=== PATIENT | female | born 1935 | race African-American/Black ===

== ENCOUNTER 2017-03-31 09:05 | Day surgery (SDC) | payer MEDICARE ==
[2017-03-31 10:10] LABS: HEMATOCRIT 35.9 % (36.0-47.0); HEMOGLOBIN 12.1 g/dL (12.0-15.5); MEAN CORPUSCULAR HGB CONC 33.7 g/dL (32.0-36.0); MEAN CORPUSCULAR VOLUME 86 fl (80-97); PLATELET COUNT 223 10^3/uL (150-450); RED BLOOD COUNT 4.16 10^6/uL (3.72-5.28); RED CELL DISTRIBUTION WIDTH 13.5 % (11.5-14.0); WHITE BLOOD COUNT 5.8 10^3/uL (4.0-10.5)
[2017-03-31] MEDS ORDERED: FLUMAZENIL INJ 0.5 MG/5 ML VIAL ONE (10:43)
[2017-03-31] MEDS ORDERED: NALOXONE HCL INJ/PF 0.4 MG/1 ML SDV ONE (10:43)
[2017-03-31] MEDS ORDERED: GLYCOPYRROLATE INJ 0.4 MG/2 ML VIAL ONE (10:43)
[2017-03-31] MEDS ORDERED: ONDANSETRON HCL INJ/PF 4 MG/2 ML SDV ONE (10:43)
[2017-03-31] MEDS ORDERED: EPINEPHRINE INJ 1 MG/10 ML DISP.SYRIN ONE (10:44)
[2017-03-31] MEDS ORDERED: GLUCAGON,HUMAN RECOMB 1 MG INJ ONE (10:44)
[2017-03-31] MEDS: MIDAZOLAM 2 MG/2 ML INJ ONE ×2 (12:17→12:21)
[2017-03-31] MEDS: FENTANYL CITRATE INJ/PF 100 MCG/2 ML AMPUL ONE ×2 (12:19→12:34)
--- NOTE | 2017-03-31 12:53 | Operative Report ---
Operative Report DATE OF SURGERY: 03/31/17 PREOPERATIVE DIAGNOSIS: History of colon polyps POSTOPERATIVE DIAGNOSIS: Transverse colon polyp OPERATION: Colonoscopy with snare polypectomy of transverse colon polyp SURGEON: LUCIA MEYERS ANESTHESIA: Moderate Sedation TISSUE REMOVED OR ALTERED: Transverse colon half centimeter sessile polyp COMPLICATIONS: None ESTIMATED BLOOD LOSS: Minimal INTRAOPERATIVE FINDINGS: Half centimeter sessile polyp at the transverse colon several folds away from the transverse colon ileal anastomosis. Well-healed coloileal anastomosis. PROCEDURE: Informed consent was obtained. Patient was brought to the endoscopy suite. IV sedation with Versed and fentanyl was administered. Digital rectal exam revealed a palpable mass in the pelvis. Patient did note that she had a [employer] device implanted in the past and my palpation is consistent with such a mass. She also stated that she had a recent [employer] evaluation in the past couple weeks. Endoscope was passed via the patient's anus. It was passed to the ileal transverse colon anastomosis. The anastomosis appear well-healed. Several folds away from the anastomosis there was 1/2 cm sessile polyp on the transverse colon. This polyp was snare polypectomy need and the specimen was retrieved. Remainder of the transverse colon and descending colon sigmoid colon the rectum appeared normal with no other masses. The bowel prep was good and visualization was good. Patient tolerated procedure well with no apparent complications. Assessment: Transverse colon polyp status post successful snare polypectomy. If this polyp proves to be an adenomatous polyp I do recommend repeat colonoscopy next year rather than 3 years since she has a propensity to develop these polyps (she has required 2 colon resections for colon polyps, last one only a year ago). Until we do a colonoscopy where there are no polyps seen, I recommend yearly colonoscopies.
--- NOTE | 2017-03-31 12:55 | PDOC DISCHARGE SUMMARY ---
Discharge Summary (SDC) - Discharge Final Diagnosis: Transverse colon polyp. Date of Surgery: 03/31/17 Discharge Date: 03/31/17 Condition: Good Treatment or Instructions: Colonoscopy with snare polypectomy of transverse colon polyp. May discharge patient home when met discharge criteria. Follow-up with me in 2 weeks. Referrals: JOSE CROW MD [Primary Care Provider] - Discharge Diet: As Tolerated Discharge Activity: Activity As Tolerated Report the Following to Your Physician Immediately: Increase in Pain, Fever over 101 Degrees, Unusual Bleeding, Large Clots
[2017-03-31 13:49] VITALS: BP 144/84
== END 2017-03-31 13:55 | disposition home or self-care (01) ==
LOC: END 09:05
PROVIDERS: ATTEND Surgery
PROC: 0DBL8ZX Excision of Transverse Colon, Via Natural or Artificial Opening Endoscopic, Diagnostic (ICD-10-PCS; principal; 2017-03-31 10:30)
DX: Z12.11 Encounter for screening for malignant neoplasm of colon (principal); K63.5 Polyp of colon; Z90.49 Acquired absence of other specified parts of digestive tract; E78.00 Pure hypercholesterolemia, unspecified; E11.9 Type 2 diabetes mellitus without complications; I10 Essential (primary) hypertension; E03.9 Hypothyroidism, unspecified; Z79.899 Other long term (current) drug therapy
CPT/HCPCS: 45385; 36415; 82962; 85027; 88305 ×2; J2250; J3010; J0171; J1610; J2310; J2405; J3490

== ENCOUNTER 2018-08-18 15:12 | Emergency (ER) | payer MEDICARE ==
[2018-08-18] MEDS ORDERED: NORMAL SALINE 1000 ML 1,000 ML IV ONE (15:35)
--- NOTE | 2018-08-18 15:38 | ER Document Report ---
ED Medical Screen (RME) - General Chief Complaint: Blood Pressure Problem Stated Complaint: DEHYDRATED Time Seen by Provider: 08/18/18 15:31 Primary Care Provider: JOSE CROW MD [Primary Care Provider] - Follow up as needed Mode of Arrival: Wheelchair Information source: Patient Notes: Patient is an 83-year-old female currently undergoing chemotherapy for cancer, she is unsure of the exact site but states that it is in her female reproductive organs. She states that she went to the doctor's office today where they stated that her blood pressure was 70s over 30s and her heart rate was elevated. Dr. Crow did call and give report that she will be coming for labs and IV fluids. She arrived via POV. Patient denies any symptoms other than feeling tired and general malaise. She denies any nausea, vomiting, diarrhea or fever. Mask was placed on the patient due to her active chemotherapy and she was upgraded to SEAMUS 2. She is mildly tachycardic on arrival. Exam: Lung sounds clear and equal bilaterally. Heart sounds S1-S2 present. I have greeted and performed a rapid initial assessment of this patient. A comprehensive ED assessment and evaluation of the patient, analysis of test results and completion of the medical decision making process will be conducted by additional ED providers. I have specifically instructed the patient or family members with the patient to immediately return to any nursing staff should anything change in the patient's condition or with their chief complaint. This medical record was dictated with voice recognizing software. There may be grammatical, syntax errors that are unintended. TRAVEL OUTSIDE OF THE [place] IN LAST 30 DAYS: No - Related Data Allergies/Adverse Reactions: No Known Allergies Allergy (Verified 08/18/18 15:19) Past Medical History - Past Medical History Cardiac Medical History: Reports: Hx Hypercholesterolemia, Hx Hypertension Denies: Hx Atrial Fibrillation, Hx Congestive Heart Failure, Hx Coronary Artery Disease, Hx Heart Attack, Hx Peripheral Vascular Disease, Hx Heart Murmur Pulmonary Medical History: Denies: Hx Asthma, Hx Bronchitis, Hx COPD, Hx Pneumonia Neurological Medical History: Denies: Hx Cerebrovascular Accident, Hx Seizures Endocrine Medical History: Reports: Hx Diabetes Mellitus Type 2 - [id number], Hx Hypothyroidism. Denies: Hx Graves' Disease, Hx Hyperthyroidism GI Medical History: Denies: Hx Crohn's Disease, Hx Gastroesophageal Reflux Disease, Hx Hepatitis, Hx Hiatal Hernia, Hx Irritable Bowel, Hx Liver Failure, Hx Pancreatitis, Hx Ulcer Musculoskeltal Medical History: Denies Hx Arthritis, Denies Hx Fibromyalgia, Denies Hx Muscular Dystrophy, Denies Hx Systemic Lupus Erythematosus Traumatic Medical History: Reports: Hx Fractures - left wrist fx 2014 Infectious Medical History: Denies: Hx Hepatitis Past Surgical History: Reports: Hx Bowel Surgery - REMOVAL OF TUMOR IN LARGE INTESTINES 2001, Other - Colectomy. Denies: Hx Appendectomy, Hx Section, Hx Cholecystectomy, Hx Colostomy, Hx Coronary Artery Bypass Graft, Hx Gastric Bypass Surgery, Hx Herniorrhaphy, Hx Hysterectomy, Hx Mastectomy, Hx Open Heart Surgery, Hx Pacemaker, Hx Tonsillectomy, Hx Tubal Ligation - Immunizations Hx Diphtheria, Pertussis, Tetanus Vaccination: Yes Influenza Administration Date for 11/2016 - 04/2017 Season: 10/10/16 Physical Exam - Vital signs Vitals: Temp Pulse Resp BP Pulse Ox 97.4 F 109 H 18 94/67 L 99 08/18/18 15:21 08/18/18 15:21 08/18/18 15:21 08/18/18 15:21 08/18/18 15:21 Course - Vital Signs Vital signs: Temp Pulse Resp BP Pulse Ox 97.4 F 109 H 18 94/67 L 99 08/18/18 15:21 08/18/18 15:21 08/18/18 15:21 08/18/18 15:21 08/18/18 15:21 Doctor's Discharge - Discharge Referrals: JOSE CROW MD [Primary Care Provider] - Follow up as needed
[2018-08-18 16:20] LABS: APPEARANCE,URINE CLEAR; BILIRUBIN,URINE NEGATIVE (NEGATIVE); COLOR,URINE YELLOW; GLUCOSE, URINE 50 mg/dL (NEGATIVE); KETONES,URINE NEGATIVE (NEGATIVE); LEUKOCYTE ESTERASE,URINE NEGATIVE (NEGATIVE); NITRITE,URINE NEGATIVE (NEGATIVE); PROTEIN,URINE NEGATIVE (NEGATIVE); URINE SPECIFIC GRAVITY 1.012; UROBILINOGEN,URINE NEGATIVE mg/dL (<2.0)
--- NOTE | 2018-08-18 17:14 | ER Document Report ---
ED General - General Chief Complaint: Blood Pressure Problem Stated Complaint: DEHYDRATED Time Seen by Provider: 08/18/18 15:31 Primary Care Provider: JOSE CROW MD [Primary Care Provider] - Follow up as needed Mode of Arrival: Wheelchair TRAVEL OUTSIDE OF THE [place] IN LAST 30 DAYS: No - HPI Notes: Patient is a 83-year-old female that presents to the emergency department for chief complaint of hypotension. Patient presented by private vehicle from Dr. Crow's office for concern of tachycardia and hypotension. Patient was being seen today for routine office visit. She reportedly had a systolic blood pressure of 79 with a diastolic in the 30s. Patient states she felt fatigued earlier but did not feel lightheaded. She denies recent illness, fever, nausea/vomiting, diarrhea, abdominal pain, dysuria and urinary frequency, cough, chest pain and palpitations. She is currently undergoing chemotherapy and states that it was found when she had a hysterectomy but she is not exactly sure what the primary cancer site is. Her fourth dose of chemotherapy was on Thursday. She is due for her next dose on September 03. Currently patient states she feels hungry and has no other complaints. She states she has not had anything to eat today and has not had much to drink either. Past Medical History: Diabetes, hypertension, hypothyroidism, cancer Past Surgical History: Hysterectomy Social History: Lives at home. Denies tobacco and alcohol use Family History: Reviewed and noncontributory for presenting illness Allergies: Reviewed, see documented allergy list. REVIEW OF SYSTEMS: CONSTITUTIONAL : No fever No chills No diaphoresis No recent illness EENT: No vision changes No congestion No sore throat CARDIOVASCULAR: No chest pain No palpitations RESPIRATORY: No shortness of breath No cough No difficulty breathing GASTROINTESTINAL: No abdominal pain No nausea No vomiting No diarrhea GENITOURINARY: No dysuria No hematuria No difficulty urinating MUSCULOSKELETAL: No back pain No leg pain No arm pain SKIN: No rashes No lesions LYMPHATIC: No swollen, enlarged glands. NEUROLOGICAL: No lightheadedness No headache No weakness No paresthesias PSYCHIATRIC: No anxiety No depression PHYSICAL EXAMINATION: Vital signs reviewed, nursing noted reviewed. GENERAL: Well-appearing, well-nourished and in no acute distress. HEAD: Atraumatic, normocephalic. EYES: Eyes appear normal, extraocular movements intact, sclera anicteric, conjunctiva are normal. ENT: nares patent, oropharynx clear without exudates. Dry mucous membranes. NECK: Normal range of motion, supple without lymphadenopathy LUNGS: Breath sounds clear to auscultation bilaterally and equal. No wheezes rales or rhonchi. HEART: Regular rate and rhythm without murmurs ABDOMEN: Soft, nontender, normoactive bowel sounds. No rebound, guarding, or rigidity. No masses appreciated. EXTREMITIES: Nontender, good range of motion, no pitting or edema. NEUROLOGICAL: No focal neurological deficits. Moves all extremities spontaneously Motor and sensory grossly intact on exam. PSYCH: Normal mood, normal affect. SKIN: Warm, Dry, normal turgor, no rashes or lesions noted on exposed skin - Related Data Allergies/Adverse Reactions: No Known Allergies Allergy (Verified 08/18/18 15:19) Past Medical History - General Information source: Patient - Social History Smoking Status: Never Smoker Family History: CAD Patient has suicidal ideation: No Patient has homicidal ideation: No - Past Medical History Cardiac Medical History: Reports: Hx Hypercholesterolemia, Hx Hypertension Denies: Hx Atrial Fibrillation, Hx Congestive Heart Failure, Hx Coronary Artery Disease, Hx Heart Attack, Hx Peripheral Vascular Disease, Hx Heart Murmur Pulmonary Medical History: Denies: Hx Asthma, Hx Bronchitis, Hx COPD, Hx Pneumonia Neurological Medical History: Denies: Hx Cerebrovascular Accident, Hx Seizures Endocrine Medical History: Reports: Hx Diabetes Mellitus Type 2 - Non-insulin- dependent, Hx Hypothyroidism. Denies: Hx Graves' Disease, Hx Hyperthyroidism Renal/ Medical History: Denies: Hx Peritoneal Dialysis GI Medical History: Denies: Hx Crohn's Disease, Hx Gastroesophageal Reflux Disease, Hx Hepatitis, Hx Hiatal Hernia, Hx Irritable Bowel, Hx Liver Failure, Hx Pancreatitis, Hx Ulcer Musculoskeletal Medical History: Denies Hx Arthritis, Denies Hx Fibromyalgia, Denies Hx Muscular Dystrophy, Denies Hx Systemic Lupus Erythematosus Traumatic Medical History: Reports: Hx Fractures - left wrist fx 2014 Infectious Medical History: Denies: Hx Hepatitis Past Surgical History: Reports: Hx Bowel Surgery - REMOVAL OF TUMOR IN LARGE INTESTINES 2001, Other - Colectomy. Denies: Hx Appendectomy, Hx Section, Hx Cholecystectomy, Hx Colostomy, Hx Coronary Artery Bypass Graft, Hx Gastric Bypass Surgery, Hx Herniorrhaphy, Hx Hysterectomy, Hx Mastectomy, Hx Open Heart Surgery, Hx Pacemaker, Hx Tonsillectomy, Hx Tubal Ligation - Immunizations Hx Diphtheria, Pertussis, Tetanus Vaccination: Yes Hx Pneumococcal Vaccination: 10/11/13 Physical Exam - Vital signs Vitals: Temp Pulse Resp BP Pulse Ox 97.4 F 109 H 18 94/67 L 99 08/18/18 15:21 08/18/18 15:21 08/18/18 15:21 08/18/18 15:21 08/18/18 15:21 Course - Re-evaluation Re-evalutation: 08/18/18 17:13 Vitals reviewed. Nursing notes reviewed. Patient presented in triage mildly tachycardic and hypotensive. After receiving 300 mL's of normal saline her heart rate is 88 and blood pressure is 151/89. Patient is currently asymptomatic and denied having any symptoms today. She is currently on telemetry monitoring. Patient has dry mucous membranes and will continue to receive IV fluids. 08/18/18 18:22 After IV fluids patient has remained asymptomatic with stable vital signs. She has not had recurrence of her hypotension. Patient's hypotension is likely related to dehydration from poor oral intake. Her lab work shows pancytopenia and mild hypokalemia. She was given p.o. potassium replacement. I discussed her lab work today with Dr. Lizama who is on-call for her oncologist. Patient reportedly had a WBC count on 08/13/2018 at 4.5 and a hemoglobin of 9.8. Dr. 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 She was encouraged to increase her oral hydration. She will return to the emergency room if she develops symptoms including nausea, vomiting, diarrhea and fevers. Patient is in agreement with this plan of care and stable at discharge. Laboratory 08/18/18 08/18/18 08/18/18 15:40 17:00 17:00 WBC 2.2 L RBC 3.16 L Hgb 9.2 L Hct 27.3 L MCV 86 MCH 29.2 MCHC 33.9 RDW 18.9 H Plt Count 135 L Seg Neutrophils % 60.5 Lymphocytes % 35.2 Monocytes % 1.0 L Eosinophils % 2.8 Basophils % 0.5 Absolute Neutrophils 1.3 L Absolute Lymphocytes 0.8 Absolute Monocytes 0.0 L Absolute Eosinophils 0.1 Absolute Basophils 0.0 PT INR VBG pH VBG pCO2 VBG HCO3 VBG Base Excess Sodium 138.3 Potassium 3.4 L Chloride 103 Carbon Dioxide 26 Anion Gap 9 BUN 17 Creatinine 0.69 Est GFR ( Amer) > 60 Est GFR (Non-Af Amer) > 60 Glucose 180 H Lactic Acid Calcium 9.2 Total Bilirubin 1.2 Direct Bilirubin 0.3 Neonat Total Bilirubin Not Reportable Neonat Direct Bilirubin Not Reportable Neonat Indirect Bili Not Reportable AST 45 H ALT 47 Alkaline Phosphatase 60 Troponin I Total Protein 7.0 Albumin 3.9 Urine Color YELLOW Urine Appearance CLEAR Urine pH 5.0 Ur Specific Xenia 1.012 Urine Protein NEGATIVE Urine Glucose (UA) 50 H Urine Ketones NEGATIVE Urine Blood NEGATIVE Urine Nitrite NEGATIVE Urine Bilirubin NEGATIVE Urine Urobilinogen NEGATIVE Ur Leukocyte Esterase NEGATIVE Urine WBC (Auto) 2 Urine RBC (Auto) 1 U Hyaline Cast (Auto) 4 Urine Bacteria (Auto) TRACE Squamous Epi Cells Auto 1 Urine Mucus (Auto) RARE Urine Ascorbic Acid NEGATIVE 08/18/18 08/18/18 08/18/18 17:00 17:00 17:00 WBC RBC Hgb Hct MCV MCH MCHC RDW Plt Count Seg Neutrophils % Lymphocytes % Monocytes % Eosinophils % Basophils % Absolute Neutrophils Absolute Lymphocytes Absolute Monocytes Absolute Eosinophils Absolute Basophils PT 15.3 INR 1.20 VBG pH 7.39 VBG pCO2 42.5 VBG HCO3 25.4 VBG Base Excess 0.4 Sodium Potassium Chloride Carbon Dioxide Anion Gap BUN Creatinine Est GFR ( Amer) Est GFR (Non-Af Amer) Glucose Lactic Acid 1.4 Calcium Total Bilirubin Direct Bilirubin Neonat Total Bilirubin Neonat Direct Bilirubin Neonat Indirect Bili AST ALT Alkaline Phosphatase Troponin I Total Protein Albumin Urine Color Urine Appearance Urine pH Ur Specific Xenia Urine Protein Urine Glucose (UA) Urine Ketones Urine Blood Urine Nitrite Urine Bilirubin Urine Urobilinogen Ur Leukocyte Esterase Urine WBC (Auto) Urine RBC (Auto) U Hyaline Cast (Auto) Urine Bacteria (Auto) Squamous Epi Cells Auto Urine Mucus (Auto) Urine Ascorbic Acid 08/18/18 17:00 WBC RBC Hgb Hct MCV MCH MCHC RDW Plt Count Seg Neutrophils % Lymphocytes % Monocytes % Eosinophils % Basophils % Absolute Neutrophils Absolute Lymphocytes Absolute Monocytes Absolute Eosinophils Absolute Basophils PT INR VBG pH VBG pCO2 VBG HCO3 VBG Base Excess Sodium Potassium Chloride Carbon Dioxide Anion Gap BUN Creatinine Est GFR ( Amer) Est GFR (Non-Af Amer) Glucose Lactic Acid Calcium Total Bilirubin Direct Bilirubin Neonat Total Bilirubin Neonat Direct Bilirubin Neonat Indirect Bili AST ALT Alkaline Phosphatase Troponin I < 0.012 Total Protein Albumin Urine Color Urine Appearance Urine pH Ur Specific Xenia Urine Protein Urine Glucose (UA) Urine Ketones Urine Blood Urine Nitrite Urine Bilirubin Urine Urobilinogen Ur Leukocyte Esterase Urine WBC (Auto) Urine RBC (Auto) U Hyaline Cast (Auto) Urine Bacteria (Auto) Squamous Epi Cells Auto Urine Mucus (Auto) Urine Ascorbic Acid Chest X-Ray 08/18/18 17:01 IMPRESSION: NO ACUTE RADIOGRAPHIC FINDING IN THE CHEST. - Vital Signs Vital signs: Temp Pulse Resp BP Pulse Ox 97.4 F 109 H 17 133/86 H 100 08/18/18 15:21 08/18/18 15:21 08/18/18 18:01 08/18/18 18:01 08/18/18 18:01 - Laboratory Result Diagrams: 08/18/18 17:00 08/18/18 17:00 Laboratory results interpreted by me: 08/18/18 08/18/18 08/18/18 15:40 17:00 17:00 WBC 2.2 L RBC 3.16 L Hgb 9.2 L Hct 27.3 L RDW 18.9 H Plt Count 135 L Monocytes % 1.0 L Absolute Neutrophils 1.3 L Absolute Monocytes 0.0 L Potassium 3.4 L Glucose 180 H AST 45 H Urine Glucose (UA) 50 H - EKG Interpretation by Me Additional EKG results interpreted by me: 08/18/18 17:55 Interpreted by myself 1728: Normal sinus rhythm, rate 87, left axis, no ectopy, no STEMI, LVH Discharge - Discharge Clinical Impression: Dehydration, Pancytopenia Condition: Stable Disposition: HOME, SELF-CARE Instructions: Dehydration ([facility]) Additional Instructions: Please return to the emergency department if you have any worsening, or concern of your symptoms. Please return to the emergency department if you develop fevers, chest pain, difficulty breathing, severe abdominal pain, or ongoing vomiting. Please follow-up with your primary care physician in 2-3 days and any other recommended physicians. If prescribed, take all medications as directed. If you have any questions or concerns do not hesitate to return the emergency department for evaluation. Increase the amount of water you are drinking daily to at least 8, 8 ounce glasses. Follow with your oncologist in the next 1 to 2 days for outpatient reevaluation. Referrals: JOSE CROW MD [Primary Care Provider] - Follow up in 3-5 days
[2018-08-18 17:21] LABS: ABSOLUTE EOSINOPHILS # (AUTO) 0.1 10^3/uL (0.0-0.6); ABSOLUTE LYMPHOCYTES (AUTO) 0.8 10^3/uL (0.5-4.7); ABSOLUTE NEUT (AUTO) 1.3 10^3/uL (1.7-8.2); BASOPHILS % (AUTO) 0.5 % (0-2); EOSINOPHILS % (AUTO) 2.8 % (0-6); HEMATOCRIT 27.3 % (36.0-47.0); HEMOGLOBIN 9.2 g/dL (12.0-15.5); LYMPHOCYTES % (AUTO) 35.2 % (13-45); MEAN CORPUSCULAR HEMOGLOBIN 29.2 pg (27.0-33.4); MEAN CORPUSCULAR HGB CONC 33.9 g/dL (32.0-36.0); MEAN CORPUSCULAR VOLUME 86 fl (80-97); PLATELET COUNT 135 10^3/uL (150-450); RED BLOOD COUNT 3.16 10^6/uL (3.72-5.28); RED CELL DISTRIBUTION WIDTH 18.9 % (11.5-14.0); SEGMENTED NEUTROPHILS % (AUTO) 60.5 % (42-78); TOTAL CELLS COUNTED % (AUTO) 100 %; WHITE BLOOD COUNT 2.2 10^3/uL (4.0-10.5)
[2018-08-18 17:22] LABS: VENOUS BLOOD BASE EXCESS 0.4 mmol/L; VENOUS BLOOD HCO3 25.4 mmol/L (20-32); VENOUS BLOOD PCO2 42.5 mmHg (35-63); VENOUS BLOOD PH 7.39 (7.30-7.42)
[2018-08-18 17:32] LABS: PROTHROMBIN TIME 15.3 SEC (11.4-15.4)
--- NOTE | 2018-08-18 17:32 | RADIOLOGY REPORT (SQ) ---
EXAM DESCRIPTION: CHEST SINGLE VIEW COMPLETED DATE/TIME: 08/18/2018 5:19 pm REASON FOR STUDY: hypotension COMPARISON: 12/26/2015 EXAM PARAMETERS: NUMBER OF VIEWS: One view. TECHNIQUE: Single frontal radiographic view of the chest acquired. RADIATION DOSE: NA LIMITATIONS: None. FINDINGS: LUNGS AND PLEURA: No opacities, masses or pneumothorax. No pleural effusion. MEDIASTINUM AND HILAR STRUCTURES: No masses. Contour normal. HEART AND VASCULAR STRUCTURES: Heart normal in size. Normal vasculature. BONES: No acute findings. HARDWARE: None in the chest. OTHER: Right-sided port tip overlying SVC. IMPRESSION: NO ACUTE RADIOGRAPHIC FINDING IN THE CHEST. TECHNICAL DOCUMENTATION: JOB ID: [id number] [employer]- All Rights Reserved Reading location - IP/workstation name: [email or web address]
[2018-08-18 17:51] LABS: ALANINE AMINOTRANSFERASE 47 U/L (9-52); ALBUMIN 3.9 g/dL (3.5-5.0); ALKALINE PHOSPHATASE 60 U/L (38-126); ANION GAP 9 (5-19); ASPARTATE AMINO TRANSFERASE 45 U/L (14-36); BILIRUBIN,DIRECT 0.3 mg/dL (0.0-0.4); BILIRUBIN,TOTAL 1.2 mg/dL (0.2-1.3); BLOOD UREA NITROGEN 17 mg/dL (7-20); CALCIUM 9.2 mg/dL (8.4-10.2); CARBON DIOXIDE 26 mmol/L (22-30); CHLORIDE 103 mmol/L (98-107); GLUCOSE 180 mg/dL (75-110); POTASSIUM 3.4 mmol/L (3.6-5.0); SODIUM 138.3 mmol/L (137-145)
[2018-08-18 18:40] VITALS: BP 144/75
--- NOTE | 2018-08-18 23:59 | EKG REPORT ---
SEVERITY:- ABNORMAL ECG - SINUS RHYTHM LEFT AXIS DEVIATION LVH : Confirmed by: Lynne Lamb MD 18-Aug-2018 23:59:17
== END 2018-08-18 18:53 | disposition home or self-care (01) ==
LOC: ER 15:12
DX: E86.0 Dehydration (principal); D61.818 Other pancytopenia; I95.9 Hypotension, unspecified; R00.0 Tachycardia, unspecified; C80.1 Malignant (primary) neoplasm, unspecified; E78.00 Pure hypercholesterolemia, unspecified; E11.9 Type 2 diabetes mellitus without complications; Z90.710 Acquired absence of both cervix and uterus
CPT/HCPCS: 93005; 36591; 99285; 96360; 36415; 87040; 87086; 85025; 85610; 87088; 80053; 81001; 84484; 87186; 82803; 83605; 71045; 93010; J7030; J1642

== ENCOUNTER 2019-07-06 08:22 | Day surgery (SDC) | payer MEDICARE ==
[2019-06-29 09:03] LABS: HEMATOCRIT 34.8 % (36.0-47.0); MEAN CORPUSCULAR HEMOGLOBIN 31.7 pg (27.0-33.4); MEAN CORPUSCULAR HGB CONC 34.5 g/dL (32.0-36.0); MEAN CORPUSCULAR VOLUME 92 fl (80-97); PLATELET COUNT 189 10^3/uL (150-450); RED BLOOD COUNT 3.78 10^6/uL (3.72-5.28); WHITE BLOOD COUNT 3.5 10^3/uL (4.0-10.5)
[2019-06-29 09:34] LABS: ANION GAP 8 (5-19); BLOOD UREA NITROGEN 19 mg/dL (7-20); CALCIUM 9.5 mg/dL (8.4-10.2); CARBON DIOXIDE 24 mmol/L (22-30); CHLORIDE 107 mmol/L (98-107); GLUCOSE 144 mg/dL (75-110); POTASSIUM 4.1 mmol/L (3.6-5.0)
[2019-07-06] MEDS ORDERED: PROMETHAZINE HCL INJ 25 MG/1 ML VIAL IV PRN ×2 (09:02)
[2019-07-06] MEDS ORDERED: DIPHENHYDRAMINE HCL 50 MG/ML VIAL IV PRN (09:02)
[2019-07-06] MEDS ORDERED: ONDANSETRON HCL INJ/PF 4 MG/2 ML SDV IV PRN (09:02)
[2019-07-06] MEDS ORDERED: PROPOFOL INJ 200 MG/20 ML VIAL IV ONE (09:27)
--- NOTE | 2019-07-06 10:16 | Discharge Summary ---
Discharge Summary (SDC) - Discharge Final Diagnosis: 1. Normal surveillance colonoscopy 2. History of right hemicolectomy Date of Surgery: 07/06/19 Discharge Date: 07/06/19 Condition: Good Treatment or Instructions: Resume preoperative medications, diet, activity; patient to follow-up with Dr. Cardenas, [place] [facility] in 2 weeks. Referrals: JOSE CROW MD [Primary Care Provider] - Discharge Diet: As Tolerated Discharge Activity: Activity As Tolerated Home Care Assistance: None Needed Report the Following to Your Physician Immediately: Shortness of Breath, Increase in Pain, Fever over 101 Degrees
--- NOTE | 2019-07-06 10:19 | Operative Report ---
Operative Report DATE OF SURGERY: 07/06/19 PREOPERATIVE DIAGNOSIS: 1. History of benign polyps of the colon. 2. Status post right hemicolectomy POSTOPERATIVE DIAGNOSIS: Normal colonoscopy to ileocolonic anastomosis OPERATION: Colonoscopy to ileocolonic anastomosis SURGEON: LUPILLO MOSS ANESTHESIA: LMAC TISSUE REMOVED OR ALTERED: None COMPLICATIONS: None ESTIMATED BLOOD LOSS: Scant INTRAOPERATIVE FINDINGS: See below PROCEDURE: Obtaining informed consent the patient was taken from the preoperative holding area to the main endoscopy suite where monitoring devices were attached to the patient. Plan and surgical timeout were conducted The patient was placed in the left lateral decubitus position with knees to chest. A perianal examination was performed. There was no visible or palpable anorectal pathology. Sphincter tone was felt to be normal. The flexible adult colonoscope was advanced through the anal rectal canal, all the way to the ileocolonic anastomosis which was approximately 10 cm the anal verge. Patient is anatomically status post right hemicolectomy for benign disease. The terminal ileum was cannulated and found to have no pathology. There were no abnormalities of the anastomosis. The scope was withdrawn to the rest of the colon checking mucosa carefully. There was no evidence of tumor, stricture, bleeding, or polyp. This was an excellent study on a well-prepped bowel. There was no evidence of diverticuloses. The scope was slowly withdrawn through the anal rectal canal. Complete visualization of the rectum was achieved with photodocumentation. The scope was withdrawn to the patient's anus. The patient tolerated the procedure well and was taken to the recovery area in stable condition. Per surveillance guidelines, patient will be an appropriate candidate for follow-up colonoscopy in 3-5 years.
[2019-07-06 12:03] VITALS: BP 141/70
== END 2019-07-06 11:45 | disposition home or self-care (01) ==
LOC: OROUT 08:22
PROVIDERS: ATTEND Surgery
DX: Z12.11 Encounter for screening for malignant neoplasm of colon (principal); Z86.010 Personal history of colon polyps; Z90.49 Acquired absence of other specified parts of digestive tract; I10 Essential (primary) hypertension; E11.9 Type 2 diabetes mellitus without complications; E03.9 Hypothyroidism, unspecified; Z85.42 Personal history of malignant neoplasm of other parts of uterus; E78.00 Pure hypercholesterolemia, unspecified; Z79.84 Long term (current) use of oral hypoglycemic drugs; Z03.818 Encounter for observation for suspected exposure to other biological agents ruled out
CPT/HCPCS: 36415; 82962; 85027; 80048; 00812; G0105; U0003; J2704; 45378; 812; 87635

== ENCOUNTER 2020-02-16 14:58 | Emergency (ER) | payer MEDICARE ==
--- NOTE | 2020-02-16 17:03 | ER Document Report ---
ED Medical Screen (RME) - General Stated Complaint: LEG PAIN Time Seen by Provider: 02/16/20 16:46 Primary Care Provider: JOSE CROW MD [Primary Care Provider] - Follow up as needed TRAVEL OUTSIDE OF THE [place] IN LAST 30 DAYS: No - HPI Patient complains to provider of: Leg Swelling Notes: 02/16/20 17:03 Patient here with bilateral ankle and leg swelling. The patient states she had endometrial cancer did chemo over a year ago. She states she is currently cancer free. She states that for the last several weeks has been experiencing some stiffness, tingling and pain to her lower extremities with some swelling to both lower extremities. She states that her doctor put her on gabapentin which does not seem to be helping. She was told to come to the ER to make sure she does not have a blood clot. She denies any chest pain or shortness of breath. Exam: Nontoxic, no distress. Lungs clear and equal throughout. Heart sounds normal. +1 pitting edema to the bilateral ankles. An initial examination was made on the patient as part of the triage process, and it was determined a more comprehensive evaluation was necessary. Initial orders were placed and patient was transferred to another provider in the ED who assumed care and finished evaluation and plan. - Related Data Allergies/Adverse Reactions: No Known Allergies Allergy (Verified 07/06/19 08:37) Past Medical History - Past Medical History Cardiac Medical History: Reports: Hx Hypercholesterolemia, Hx Hypertension - no meds Denies: Hx Atrial Fibrillation, Hx Congestive Heart Failure, Hx Coronary Artery Disease, Hx Heart Attack, Hx Peripheral Vascular Disease, Hx Heart Murmur Pulmonary Medical History: Denies: Hx Asthma, Hx Bronchitis, Hx COPD, Hx Pneumonia Neurological Medical History: Denies: Hx Cerebrovascular Accident, Hx Seizures Endocrine Medical History: Reports: Hx Diabetes Mellitus Type 2 - [id number], Hx Hypothyroidism. Denies: Hx Graves' Disease, Hx Hyperthyroidism Renal/ Medical History: Denies: Hx Peritoneal Dialysis GI Medical History: Denies: Hx Crohn's Disease, Hx Gastroesophageal Reflux Disease, Hx Hepatitis, Hx Hiatal Hernia, Hx Irritable Bowel, Hx Liver Failure, Hx Pancreatitis, Hx Ulcer Musculoskeltal Medical History: Denies Hx Arthritis, Denies Hx Fibromyalgia, Denies Hx Muscular Dystrophy, Denies Hx Systemic Lupus Erythematosus Traumatic Medical History: Reports: Hx Fractures - left wrist fx 2015 Infectious Medical History: Denies: Hx Hepatitis Past Surgical History: Reports: Hx Bowel Surgery - REMOVAL OF TUMOR IN LARGE INTESTINES 2001, Other - Colectomy. Denies: Hx Appendectomy, Hx Section, Hx Cholecystectomy, Hx Colostomy, Hx Coronary Artery Bypass Graft, Hx Gastric Bypass Surgery, Hx Herniorrhaphy, Hx Hysterectomy, Hx Mastectomy, Hx Open Heart Surgery, Hx Pacemaker, Hx Tonsillectomy, Hx Tubal Ligation - Immunizations Hx Diphtheria, Pertussis, Tetanus Vaccination: Yes Physical Exam - Vital signs Vitals: Temp Pulse Resp BP Pulse Ox 98.4 F 77 17 150/68 H 100 02/16/20 15:04 02/16/20 15:04 02/16/20 15:04 02/16/20 15:04 02/16/20 15:04 Course - Vital Signs Vital signs: Temp Pulse Resp BP Pulse Ox 98.4 F 77 17 150/68 H 100 02/16/20 15:04 02/16/20 15:04 02/16/20 15:04 02/16/20 15:04 02/16/20 15:04 Doctor's Discharge - Discharge Referrals: JOSE CROW MD [Primary Care Provider] - Follow up as needed
--- NOTE | 2020-02-16 17:37 | RADIOLOGY REPORT (SQ) ---
EXAM DESCRIPTION: CHEST SINGLE VIEW IMAGES COMPLETED DATE/TIME: 02/16/2020 4:01 pm REASON FOR STUDY: leg swelling COMPARISON: 08/18/2018 EXAM PARAMETERS: NUMBER OF VIEWS: One view. TECHNIQUE: Single frontal radiographic view of the chest acquired. RADIATION DOSE: NA LIMITATIONS: None. FINDINGS: LUNGS AND PLEURA: No opacities, masses or pneumothorax. No pleural effusion. MEDIASTINUM AND HILAR STRUCTURES: No masses. Contour normal. HEART AND VASCULAR STRUCTURES: Heart normal in size. Normal vasculature. BONES: No acute findings. HARDWARE: Right infraclavicular MediPort catheter with tip in the lower SVC unchanged. OTHER: No other significant finding. IMPRESSION: NO ACUTE RADIOGRAPHIC FINDING IN THE CHEST. TECHNICAL DOCUMENTATION: JOB ID: [id number] 2010 [employer]- All Rights Reserved Reading location - IP/workstation name: [email or web address]
[2020-02-16 18:42] LABS: ABSOLUTE EOSINOPHILS # (AUTO) 0.1 10^3/uL (0.0-0.6); ABSOLUTE LYMPHOCYTES (AUTO) 1.1 10^3/uL (0.5-4.7); ABSOLUTE MONOCYTES (AUTO) 0.4 10^3/uL (0.1-1.4); ABSOLUTE NEUT (AUTO) 2.4 10^3/uL (1.7-8.2); BASOPHILS % (AUTO) 0.7 % (0-2); EOSINOPHILS % (AUTO) 3.5 % (0-6); HEMATOCRIT 35.1 % (36.0-47.0); HEMOGLOBIN 11.7 g/dL (12.0-15.5); LYMPHOCYTES % (AUTO) 27.7 % (13-45); MEAN CORPUSCULAR HEMOGLOBIN 29.2 pg (27.0-33.4); MEAN CORPUSCULAR HGB CONC 33.4 g/dL (32.0-36.0); MEAN CORPUSCULAR VOLUME 87 fl (80-97); PLATELET COUNT 224 10^3/uL (150-450); RED BLOOD COUNT 4.02 10^6/uL (3.72-5.28); RED CELL DISTRIBUTION WIDTH 15.8 % (11.5-14.0); SEGMENTED NEUTROPHILS % (AUTO) 58.1 % (42-78); TOTAL CELLS COUNTED % (AUTO) 100 %; WHITE BLOOD COUNT 4.1 10^3/uL (4.0-10.5)
[2020-02-16 18:49] LABS: INTERNATIONAL RATION (INR) 1.06
[2020-02-16 18:50] LABS: PARTIAL THROMBOPLASTIN TIME 25.7 SEC (23.5-35.8)
[2020-02-16 19:00] LABS: ALBUMIN 4.4 g/dL (3.5-5.0); ALKALINE PHOSPHATASE 104 U/L (38-126); ANION GAP 8 (5-19); ASPARTATE AMINO TRANSFERASE 44 U/L (14-36); BILIRUBIN,DIRECT 0.2 mg/dL (0.0-0.4); BILIRUBIN,TOTAL 0.5 mg/dL (0.2-1.3); BLOOD UREA NITROGEN 17 mg/dL (7-20); CALCIUM 9.7 mg/dL (8.4-10.2); CARBON DIOXIDE 26 mmol/L (22-30); CHLORIDE 107 mmol/L (98-107); GLUCOSE 121 mg/dL (75-110); POTASSIUM 3.9 mmol/L (3.6-5.0); TOTAL PROTEIN 7.8 g/dL (6.3-8.2)
--- NOTE | 2020-02-16 19:10 | RADIOLOGY REPORT (SQ) ---
EXAM DESCRIPTION: VENOUS BILATERAL LOWER IMAGES COMPLETED DATE/TIME: 02/16/2020 5:46 pm REASON FOR STUDY: swelling, pain COMPARISON: None. TECHNIQUE: Dynamic and static franz scale and color images acquired of both lower extremity venous sy stems. Selected spectral images acquired with additional compression and augmentation maneuvers. Imag es stored on PACS. LIMITATIONS: None. FINDINGS: RIGHT LEG COMMON FEMORAL AND FEMORAL: Normal phasicity, compression and augmentation. No visualized echogenic m aterial on franz scale. No defects on color images. POPLITEAL: Normal compression and augmentation. No visualized echogenic material on franz scale. No de fects on color images. CALF VESSELS: Normal compression and augmentation. No visualized echogenic material on franz scale. No defects on color image. GSV AND SSV: Normal compression. No visualized echogenic material on franz scale. No defects on color images. ANY DEEP VENOUS INSUFFICIENCY: Not evaluated. ANY EVIDENCE OF POPLITEAL CYST: No. OTHER: No other significant finding. LEFT LEG COMMON FEMORAL AND FEMORAL: Normal phasicity, compression and augmentation. No visualized echogenic m aterial on franz scale. No defects on color images. POPLITEAL: Normal compression and augmentation. No visualized echogenic material on franz scale. No de fects on color images. CALF VESSELS: Normal compression and augmentation. No visualized echogenic material on franz scale. No defects on color images. GSV AND SSV: Normal compression. No visualized echogenic material on franz scale. No defects on color images. ANY DEEP VENOUS INSUFFICIENCY: Not evaluated. ANY EVIDENCE POPLITEAL CYST: No. OTHER: No other significant finding. IMPRESSION: NO EVIDENCE DVT OR SVT IN EITHER LEG. TECHNICAL DOCUMENTATION: JOB ID: [id number] [employer]- All Rights Reserved Reading location - IP/workstation name: [id number]
--- NOTE | 2020-02-16 19:23 | ER Document Report ---
ED Extremity Problem, Lower - General Stated Complaint: LEG PAIN Time Seen by Provider: 02/16/20 16:46 Primary Care Provider: JOSE CROW MD [Primary Care Provider] - Follow up as needed TRAVEL OUTSIDE OF THE [place] IN LAST 30 DAYS: No - HPI Patient complains to provider of: Pain, Swelling Location: Leg Notes: Patient here with bilateral ankle and leg swelling. The patient states she had endometrial cancer did chemo over a year ago. She states she is currently cancer free. She states that for the last several weeks has been experiencing some stiffness, tingling and pain to her lower extremities with some swelling to both lower extremities. She states that her doctor put her on gabapentin which does not seem to be helping. She was told to come to the ER to make sure she does not have a blood clot. She denies any chest pain or shortness of breath. Nothing seems to make symptoms better or worse. She denies abdominal pain. No nausea, vomiting, diarrhea. No rash. No fever. No other complaints at this time. - Related Data Allergies/Adverse Reactions: No Known Allergies Allergy (Verified 07/06/19 08:37) Past Medical History - Social History Smoking Status: Unknown if Ever Smoked Frequency of alcohol use: None Drug Abuse: None Family History: CAD - Past Medical History Cardiac Medical History: Reports: Hx Hypercholesterolemia, Hx Hypertension - no meds Denies: Hx Atrial Fibrillation, Hx Congestive Heart Failure, Hx Coronary Artery Disease, Hx Heart Attack, Hx Peripheral Vascular Disease, Hx Heart Murmur Pulmonary Medical History: Denies: Hx Asthma, Hx Bronchitis, Hx COPD, Hx Pneumonia Neurological Medical History: Denies: Hx Cerebrovascular Accident, Hx Seizures Endocrine Medical History: Reports: Hx Diabetes Mellitus Type 2 - [id number], Hx Hypothyroidism. Denies: Hx Graves' Disease, Hx Hyperthyroidism Renal/ Medical History: Denies: Hx Peritoneal Dialysis GI Medical History: Denies: Hx Crohn's Disease, Hx Gastroesophageal Reflux Disease, Hx Hepatitis, Hx Hiatal Hernia, Hx Irritable Bowel, Hx Liver Failure, Hx Pancreatitis, Hx Ulcer Musculoskeletal Medical History: Denies Hx Arthritis, Denies Hx Fibromyalgia, De nies Hx Muscular Dystrophy, Denies Hx Systemic Lupus Erythematosus Traumatic Medical History: Reports: Hx Fractures - left wrist fx 2014 Infectious Medical History: Denies: Hx Hepatitis Past Surgical History: Reports: Hx Bowel Surgery - REMOVAL OF TUMOR IN LARGE INTESTINES 2002, Other - Colectomy. Denies: Hx Appendectomy, Hx Section, Hx Cholecystectomy, Hx Colostomy, Hx Coronary Artery Bypass Graft, Hx Gastric Bypass Surgery, Hx Herniorrhaphy, Hx Hysterectomy, Hx Mastectomy, Hx Open Heart Surgery, Hx Pacemaker, Hx Tonsillectomy, Hx Tubal Ligation - Immunizations Hx Diphtheria, Pertussis, Tetanus Vaccination: Yes Hx Pneumococcal Vaccination: 10/11/13 Review of Systems - Review of Systems -: Yes All other systems reviewed and negative Physical Exam - Vital signs Vitals: Temp Pulse Resp BP Pulse Ox 98.4 F 77 17 150/68 H 100 02/16/20 15:04 02/16/20 15:04 02/16/20 15:04 02/16/20 15:04 02/16/20 15:04 - Notes Notes: GENERAL: alert, cooperative, nontoxic, no distress. HEAD: normocephalic, atraumatic EYES: conjunctiva pink without discharge, no external redness or swelling. EARS: no external swelling, no external redness NOSE: atraumatic, no external swelling MOUTH/THROAT: mucous membranes moist and pink, posterior pharynx without erythema, swelling, exudate. No trismus or drooling. NECK: soft, supple, full range of motion, no meningismus. CHEST: no distress, lungs clear and equal throughout. No wheezing, rales, rhonchi. CARDIAC: regular rate and rhythm, no murmur. ABDOMEN: Soft, nontender to palpation. BACK: full range of motion EXTREMITIES: full range of motion of all extremities. No redness. +1 pitting edema to the bilateral ankles. Normal pulse and sensation distally. No significant calf tenderness. Compartments are soft. NEURO: alert and oriented x 3, no focal deficits, full range of motion of all extremities. PYSCH: appropriate mood, affect. Patient is cooperative. SKIN: pink, warm, dry, no rash. Course - Re-evaluation Re-evalutation: 02/16/20 19:20 Patient resting comfortably at this time. I gone over results with the patient. Questions answered. Will discharge home. 02/16/20 19:22 Patient is nontoxic-appearing with stable vitals. She arrives with complaints of bilateral ankle swelling has been gone for the past several months. She saw her family doctor who started her on gabapentin. She denies any chest pain or shortness of breath. She denies any history of congestive heart failure or renal failure. She does have a prior history of endometrial cancer over a year ago. No active cancer now. No history of DVT or PE. On exam she has mild +1 pitting edema to the bilateral ankles. No signs of infection. Neurovascularly intact. Labs show a normal white count. Hemoglobin mildly low at 11.7 and stable when compared to previous labs. Coags are normal. Chemistries show evidence of mildly elevated glucose of 121 and a mildly elevated AST of 44 which is nonspecific. Remainder of the electrolytes are normal. Renal function was normal. NT proBNP is 67. Venous Doppler lower extremity shows no DVT bilaterally. Chest x-ray shows no acute abnormality. Patient has no signs of congestive heart failure, renal failure or other serious cause of swelling to the bilateral lower legs. She has a normal vascular exam. At this point believe the patient can be discharged home with instructions to wear compression stockings and to follow-up with her primary care doctor at the next available appointment. Follow-up sooner for any worsening pain, swelling, chest pain or shortness of breath, fever, persistent vomiting, or for any further concerns. The patient's emergency department workup and current diagnosis were explained to the patient and or family. Follow-up instructions were provided. Medications if prescribed were discussed. Instructions for when to return to the emergency department including specific worrisome symptoms were discussed with the patient and/or family. - Vital Signs Vital signs: Temp Pulse Resp BP Pulse Ox 98.4 F 77 17 150/68 H 100 02/16/20 15:04 02/16/20 15:04 02/16/20 15:04 02/16/20 15:04 02/16/20 15:04 - Laboratory Results Result Diagrams: 02/16/20 18:20 02/16/20 18:20 Laboratory Results Interpreted: 02/16/20 02/16/20 18:20 18:20 Hgb 11.7 L Hct 35.1 L RDW 15.8 H Est GFR (MDRD) Non-Af 55 L Glucose 121 H AST 44 H Critical Laboratory Results Reviewed: No Critical Results - Radiology Results Critical Radiology Results Reviewed: No Critical Results Discharge - Discharge Clinical Impression: Ankle swelling Qualifiers: Laterality: unspecified laterality Qualified Code(s): M25.473 - Effusion, unspecified ankle Condition: Stable Disposition: HOME, SELF-CARE Instructions: Dependent Edema ([facility]), Edema, Peripheral ([facility]) Additional Instructions: Wear compression stockings. Elevate your feet when possible. Follow-up with your primary care doctor at the next available appointment. Follow-up sooner for worsening pain, worsening swelling, fever, redness, chest pain or shortness of breath, persistent vomiting, or any further concerns. Referrals: JOSE CROW MD [Primary Care Provider] - Follow up as needed
[2020-02-16 19:38] VITALS: BP 145/84
== END 2020-02-16 19:37 | disposition home or self-care (01) ==
LOC: ER 14:58
DX: M25.572 Pain in left ankle and joints of left foot (principal); M25.571 Pain in right ankle and joints of right foot; M25.473 Effusion, unspecified ankle; M79.89 Other specified soft tissue disorders; E78.00 Pure hypercholesterolemia, unspecified; I10 Essential (primary) hypertension; E11.9 Type 2 diabetes mellitus without complications
CPT/HCPCS: 36415; 71045; 80053; 83735; 83880; 85025; 85610; 85730; 93970; 99285